=== PATIENT | female | born 1980 | race Two or more races ===

== ENCOUNTER → 2025-06-01 | Outpatient (CLI) | payer MEDICAID, SELFPAY ==
--- NOTE | 2025-06-01 09:45 | XR_ITS ---
Examination: Screening digital mammography, bilateral Computer aided detection 3-D breast Tomosynthesis, bilateral Date and time of exam: June 01, 2025, 0850 hours no priors Indication: Screening Technique: Nonmagnified MLO, CC views of the breasts to been obtained, reconstructed from 3-D Tomosynthesis images. R2 computer aided detection program utilized for evaluation of suspicious masses and/or abnormal calcifications. 3-D Tomosynthesis images obtained. Findings: The breasts are heterogeneously dense, which may obscure small masses 6 mm circumscribed nodule upper outer right breast 13 mm oval nodule 12 o'clock position left breast posterior depth Impression: BI-RADS Category 0: Incomplete: Need additional imaging evaluation Recommend follow-up spot tomographic views 6 mm nodule upper outer right breast and 13 mm oval nodule 12 o'clock position left breast as well as bilateral breast sonography to collate the work-up
== END | disposition home or self-care (01) ==
LOC: CDIM 08:39
PROVIDERS: Referring Provider Nurse Practitioner Family; Visit Provider Nurse Practitioner Family
DX: Z12.31 Encounter for screening mammogram for malignant neoplasm of breast (principal); N63.11 Unspecified lump in the right breast, upper outer quadrant; N63.25 Unspecified lump in the left breast, overlapping quadrants; R92.8 Other abnormal and inconclusive findings on diagnostic imaging of breast
CPT/HCPCS: 77063; 77067

== ENCOUNTER 2025-06-28 17:09 | Emergency (ER) | payer MEDICAID, SELFPAY ==
--- NOTE | 2025-06-28 17:13 | EKG_ITS ---
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
[2025-06-28 17:29] VITALS: BP 110/76; PULSE 70; RESP 16; TEMP 36.7; O2SAT 97; BMI 21.6
--- NOTE | 2025-06-28 17:42 | XR_ITS ---
EXAMINATION: PA lateral chest 2 views TECHNIQUE: Upright PA lateral chest 2 views Date and time: June 28, 2025, 1803 hours, comparison May 27, 2023 INDICATIONS: Chest pain 1 week. FINDINGS: Normal heart size. Lungs are clear. Intact osseous structures IMPRESSION: No active disease
--- NOTE | 2025-06-28 17:42 | PD.EDRME ---
Rapid Medical Screening Exam RME Arrival date/time: 06/28/25 17:09 45-year-old female presents to the Emergency Department for complaint of chest pain Chief Complaint: Chest Pain Vital signs: Vital Signs Temperature 98.0 F 06/28/25 17:29 Pulse Rate 70 06/28/25 17:29 Respiratory Rate 16 06/28/25 17:29 Blood Pressure 110/76 06/28/25 17:29 Pulse Oximetry (%) 97 06/28/25 17:29 Oxygen Delivery Method Room Air 06/28/25 17:29 Vital signs reviewed by provider: Yes Exam: On exam patient well-appearing does not appear ill or toxic Clinical Impression: Lab work imaging EKG obtained
[2025-06-28 19:09] LABS: Basophils # (Auto) 0.1 Thou/mm3 (0.0-0.2); Basophils % (Auto) 1 % (0-2.5); Eosinophils # (Auto) 0.8 Thou/mm3 (0.0-0.5); Eosinophils % (Auto) 13 % (0-10); Hematocrit 37.8 % (36.0-46.0); Hemoglobin 12.9 g/dL (12.0-16.0); Immature Granulocytes Auto 0.01 Thou/mm3 (0.00-0.00); Lymphocytes # (Auto) 2.3 Thou/mm3 (1.0-4.8); Lymphocytes % (Auto) 39 % (10-50); Mean Corpuscular HGB Conc 34.1 g/dl (31.0-37.0); Mean Corpuscular Hemoglobin 30.4 pg (25.0-35.0); Mean Corpuscular Volume 89 fL (80-100); Monocytes # (Auto) 0.5 Thou/mm3 (0.0-0.8); Monocytes % (Auto) 9 % (0-12); Neutrophils # (Auto) 2.2 Thou/mm3 (1.8-7.7); Neutrophils % (Auto) 38 % (37-80); Nucleated Red Blood Cell # 0.00 Thou/mm3 (0.00-0.00); Nucleated Red Blood Cell % 0 /100 WBC (0); Platelet Count 277 Thou/mm3 (140-440); RDW Standard Deviation 42.4 fL (36.4-46.3); Red Blood Count 4.24 Miln/mm3 (4.00-5.20); White Blood Count 5.8 Thou/mm3 (3.6-11.0)
[2025-06-28 19:22] LABS: HCG,Qualitative Serum Negative
[2025-06-28 19:29] LABS: Alanine Aminotransferase 8 U/L (10-49); Albumin, Serum 4.4 gm/dL (3.5-5.0); Albumin/Globulin Ratio 1.3 (1.2-2.2); Alkaline Phosphatase 41 U/L (46-116); Anion Gap 9 (7-16); Aspartate Amino Transferase 19 U/L (0-34); BUN/Creatinine Ratio 17 Ratio (12-20); Bilirubin,Total 0.4 mg/dL (0.3-1.2); Blood Urea Nitrogen 10 mg/dL (9-23); Calcium 9.3 mg/dL (8.3-10.6); Calcium (Corrected) 9.3 mg/dL (8.5-10.1); Carbon Dioxide 28.1 mMol/L (20.0-31.0); Chloride 105 mMol/L (98-107); Creatinine (Component) 0.6 mg/dL (0.6-1.3); Estimated Creatinine Clearance 112.0 mL/min (>60); Globulin 3.3 gm/dL (2.3-3.5); Glucose 84 mg/dL (74-106); Osmolality,Calculated 281 (275-295); Potassium 3.4 mMol/L (3.4-5.1); Sodium 142 mMol/L (136-145); Total Protein 7.7 gm/dL (5.7-8.2); Troponin I < 0.002 ng/mL (0.0-0.045); eGFR > 60 See Note
--- NOTE | 2025-06-28 21:36 | PD.EDCHEST ---
ED Chest Pain RME/HPI General Chief Complaint: Chest Pain Stated Complaint: CHEST PAIN Time Seen by Provider: 06/28/25 21:18 Arrival date/time: 06/28/25 17:09 45-year-old female patient with significant history of asthma, came in for evaluation regarding chest tightness. Has been having on and off chest tightness for 1 week, associated with shortness of breath. Currently patient is not having any chest pain. Denies any cough denies any wheezing. Denies any fever denies any other complaints no medication was taken prior to ER visit. RME / HPI RME / HPI narrative: 06/28/25 17:09 45-year-old female presents to the Emergency Department for complaint of chest pain Exam: On exam patient well-appearing does not appear ill or toxic Impression: Lab work imaging EKG obtained Related Data Previous Rx's ?Medication ?Instructions ?Recorded albuterol sulfate 90 mcg/actuation 1 inh inhalation Q4H PRN shortness 12/20/22 aerosol inhaler (ProAir HFA) of breath or wheezing #8.5 grams prednisone 20 mg tablet See Taper PO QDAY #15 tabs 12/20/22 albuterol sulfate 90 mcg/actuation 2 inh inhalation Q4H PRN shortness 05/27/23 aerosol inhaler (ProAir HFA) of breath or wheezing #8.5 grams ipratropium 0.5 mg-albuterol 3 mg 3 ml inhalation Q6H PRN shortness 05/27/23 (2.5 mg base)/3 mL nebulization of breath #180 mL soln prednisone 50 mg tablet 50 mg PO QDAY #7 tabs 05/27/23 prednisone 50 mg tablet 50 mg PO QDAY #7 tabs 06/28/25 Allergies Allergy/AdvReac Type Severity Reaction Status Date / Time diphenhydramine Allergy Intermediate Rash Verified 06/28/25 17:12 Review of Systems Review of Systems Narrative Review of Systems: Review of system reviewed and within normal limits except mentioned in HPI ED Exam Narrative Physical exam: VITAL SIGNS: Reviewed. GENERAL APPEARANCE: Alert and interactive, follows commands, no acute distress, HEAD AND FACE: Non-traumatic. ENT: PERRL, pink conjunctivitis, eyelid no trauma, Mucous membrane moist. NECK: Supple, nontender, no nuchal rigidity. CHEST: No tenderness, no crepitus, no paradoxical movement, no retractions. LUNGS: Clear, well ventilated, symmetric, no rales, no wheezing, no ronchi, no stridor, good breath sounds bilaterally. HEART: Regular rate, regular rhythm, no murmur, no gallops. ABDOMEN: Soft, positive bowel sounds, nondistended, no guarding, nontender, no rebound, no masses, RECTAL: Deferred. GENITAL: Deferred. NEUROLOGICAL: Gross motor function intact sensory function intact, Appropriate for age. MUSCULOSKELETAL: low back nontender, full range of motion. EXTREMITIES: Nontender, full range of motion. SKIN: Color pink, dry, no rash, no lacerations, no abrasions, no contusions. LYMPHATICS: Deferred. Course Quality Measures none Orders Category Date Time Status EKG (ED ONLY) *Do not use* NOW Care 06/28/25 17:13 Completed EKG (ED Only) Stat Exams 06/28/25 17:13 Draft XR chest 2V Stat Exams 06/28/25 17:42 Completed CBC Stat Lab 06/28/25 18:35 Completed Comprehensive Metabolic Panel Stat Lab 06/28/25 18:35 Completed HCG,Qualitative Serum Stat Lab 06/28/25 18:35 Completed Troponin I Stat Lab 06/28/25 18:35 Completed Vital Signs Vital signs: Vital Signs Temperature 98.0 F 06/28/25 17:29 Pulse Rate 70 06/28/25 17:29 Respiratory Rate 16 06/28/25 17:29 Blood Pressure 110/76 06/28/25 17:29 Pulse Oximetry (%) 97 06/28/25 17:29 Oxygen Delivery Method Room Air 06/28/25 17:29 Chest Pain MDM Narrative MDM Narrative:: 45-year-old female patient with significant history of asthma, came in for evaluation regarding chest tightness. Has been having on and off chest tightness for 1 week, associated with shortness of breath. Currently patient is not having any chest pain. Denies any cough denies any wheezing. Denies any fever denies any other complaints no medication was taken prior to ER visit. I personally reviewed and interpreted the x-ray of this patient. There is no acute abnormalities found, no infiltrates no pneumothorax no hemothorax normal chest x-ray. Review of other structures was without significant abnormal findings also. I additionally reviewed the radiologist report and agree with the interpretation. Patient's laboratory workup all came back normal, troponin is normal, EKG showed normal sinus rhythm ventricular rate of 80 bpm, no ST segment elevation depression noted. Results discussed with the patient currently patient does not need asthma treatment. She is stable to discharge home Patient data External records reviewed:: None Clinical information provided by:: patient Social determinants that could affect healthcare access:: none Patient has the following chronic illnesses:: History of asthma How is presenting disease/condition affected by chronic disease/condition?: exacerbated by Evaluation data The following diagnostics were reviewed and interpreted by me:: lab results, radiology exam(s) and EKG tracing(s) Lab and/or radiology exams considered but not ordered:: None Interpretation Summary: See above Medications / Prescriptions Medications or Prescriptions considered but not ordered:: None Medication administrations:: None Consultations Consultation(s) initiated? (list below): No Diagnosis Chest Pain Differential Diagnosis: costochondritis, chest pain and other (Chest tightness, history of asthma) Most likely diagnosis given after review of the tests above:: Chest tightness, history of asthma Admission Indicated Admission indicated?: not indicated Admission Request Was there a request for admission?: No Disposition Plan Disposition Plan: Discharge Discharge Attestation Discharge Attestation: The patient and all family members were given an opportunity to ask questions and understood the discharge instructions. Discharge instructions specifically effects, indications for sooner follow up or return to the emergency department, and the expected course of current diagnosis. Patient condition: Stable Discharge Plan Plan Patient Disposition: HOME (Self Care) Discharge Disposition comment: Stable Prescriptions/Referrals Prescriptions/Med Rec: New prednisone 50 mg tablet 50 mg PO QDAY Qty: 7 0RF No Action albuterol sulfate [ProAir HFA] 90 mcg/actuation HFA aerosol inhaler 1 inh inhalation Q4H PRN (Reason: shortness of breath or wheezing) Qty: 8.5 0RF Rx Instructions: give spacer prednisone 20 mg tablet See Taper PO QDAY Qty: 15 0RF Taper: Prednisone Taper 60 mg DAILY for 5 Days and 0 Hour albuterol sulfate [ProAir HFA] 90 mcg/actuation HFA aerosol inhaler 2 inh inhalation Q4H PRN (Reason: shortness of breath or wheezing) Qty: 8.5 0RF prednisone 50 mg tablet 50 mg PO QDAY Qty: 7 0RF ipratropium-albuterol 0.5 mg-3 mg(2.5 mg base)/3 mL solution for nebulization 3 ml inhalation Q6H PRN (Reason: shortness of breath) Qty: 180 0RF Referrals: Jaciel Bhardwaj MD [Primary Care Provider, Pediatrics] - In 1 week Problem List Clinical Impression: Feeling of chest tightness, History of asthma Patient/Caregiver Discharge Instructions Discharge Activity: activity as tolerated Education Materials: ED Chest Pain, Noncardiac Additional Instructions: Thank you for the opportunity for serving you today. You are stable for discharged . You are advised to: Follow-up with your PCP in 1 to 2 days Return to ED for worsening of symptoms Increase oral fluids Take medication as prescribed Continue using your albuterol as needed Your chest x-ray today came back unremarkable. There is no pneumonia, cardiac workup also came back normal no sign of heart attack. Print Language: Micronesian Stand Alone Forms: Julianne Award Info., Patient Portal Info Letter CEFERINO/ROGER Supervising Physician CEFERINO/ROGER Supervising Physician: MD Evi
== END 2025-06-28 22:58 | disposition home or self-care (01) ==
PROVIDERS: Nurse Practitioner Primary Care; Emergency Provider Emergency Medicine; PCP Pediatrics
DX: R07.89 Other chest pain (principal); J45.909 Unspecified asthma, uncomplicated; I45.10 Unspecified right bundle-branch block
CPT/HCPCS: 36415; 71046; 80053; 84484; 84703; 85025; 93005; 99283